=== PATIENT | female | born 2005 | race Caucasian/White ===

== ENCOUNTER 2024-11-20 12:20 | Emergency (ER) | payer SELFPAY ==
[2024-11-20] VITALS (7 sets, daily range): BP systolic 110–125; BP diastolic 61–76; PULSE 43–63; RESP 11–18; TEMP 36.4; O2SAT 100
--- OUTSIDE RECORDS SUMMARY | 2024-11-20 12:22 | XMS_ITS | Clinical Summary ---
Author Organization [facility] Address [address] [place] [id number] Care Team Providers Care Hemmer Lockstitch Name Role Phone Unavailable Primary Care Provider Unavailabl e Social History Tobacco Use Types Packs/Day Years Used Date Smoking Tobacco: Never Assessed Comments Unknown Sex and Gender Information Value Date Recorded Sex Assigned at Not on file Legal Sex Female 5:00 PM CDT Gender Identity Not on file Sexual Orientation Not on file Plan of Treatment Health Maintenance Due Date Last Done Comments Annual Physical 11/29/2006 HPV Vaccines (1 - 3-dose series) 11/29/2018 Meningococcal B Vaccine (1 o f 2 - Standard) 2019 Hepatitis C 11/29/2021 DTaP, Tdap and Td Vaccines ( 1 - Tdap) 11/29/2022 Hepatitis B Vaccines (1 of 3 - 19+ 3-dose series) 11/29/2022 COVID-19 Vaccine (1 - 2023-2 5 season) 2024 Meningococcal Vaccine Aged Out No bhupendra mirna eligible based on patient's age to complete this topic Pneumococcal Vaccine: Pediat rics (0 to 5 Years) and At-Risk Patients (6 to 49 Years) Aged Out No longer eligible b ased on patient's age to complete this topic RSV Immunizations Under 20 Months Aged Out No longer eligible based on patient's age to complete this topic
--- OUTSIDE RECORDS SUMMARY | 2024-11-20 12:22 | XMS_ITS | Clinical Summary ---
Author Organization [facility] Address [address] [place] [address] Care Team Providers Care Cotton Tier Name Role Phone Ammon Britton MD Primary Care Provider [phone] Source Comments [facility],non-owned Affiliates and Associated Physician Practices is amultiple site organization consisting of ambulatory clinics and hospital sitesin [place], [place], [place] and [place]. This disclosure is being madepursuant to the Care Everywhere program and may not contain all information available regarding this patient. Last updated 18.[facility] Allergies Active Allergy Reactions Criticality Noted Date Comments Insect Extract Anaphylaxis High 08/26/2018 Beestings, lips blue, trouble breathing, facial swelling Medications * Be aware that medications may not be up to date on this document. Alwaysverify current medications with the patient. ibuprofen (MOTRIN) 800 MG tablet Take 1 tablet by mouth every 6 hours as needed for Pain 60 tablet 8 Active Additional Information Patient not taking.Reported on 09/04/2021 sertraline (ZOLOFT) 100 MG tablet Take 150 mg by mouth once daily Active tamsulosin (FLOMAX) 0.4 MG capsuleIndicatio ns:Bladder dysfunction Take 1 capsule by mouth once daily Take 30 minutes after a meal at the same time each day. 30 capsule 2 9 Active Additional Information Patient not taking.Reported on 09/04/2021 norgestimate-eth inyl estradiol (ORTHO-CYCLEN; MONONESSA; PREVIFEM; SPRINTEC) 0.25-35 MG-MCG tablet Take 1 tablet by mouth once daily Active prazosin (MINIPRESS) 1 MG capsule Take 1 mg by mouth Active bacitracin ointment Apply to affected area 3 times daily 14 g 2 Active Active Problems Problem Noted Date Diagnosed Date Hand injury, right, initial encounter 06/06/2017 Right wrist injury, initial encounter 06/06/2017 Pes planus of both feet 09/19/2016 Complex regional pain syndro me type 1 of right lower extremity 08/08/2016 Right foot injury 07/18/2016 Family History Medical History Relation Name Comments Anesthesia Reaction Neg Hx Other - Hematologic Neg Hx Social History Tobacco Use Types Packs/Day Years Used Date Smoking Tobacco: Never Smokeless Tobacco: Never Alcohol Use Standard Drinks/Week Comments No 0 (1 standard drink = 0.6 oz pur e alcohol) Comments No Sex and Gender Information Value Date Recorded Sex Assigned at Not on file 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 Gender Identity Not on file Sexual Orientation Not on file Last Filed Vital Signs Vital Sign Reading Time Taken Comments Blood Pressure 125/78 09/05/2021 12:50 AM CDT Pulse 64 09/05/2021 4:02 AM CDT Temperature 36.7 C (98.1 F) 09/05/2021 2:10 AM CDT Respiratory Rate 20 09/05/2021 4:02 AM CDT Oxygen Saturation 100% 09/05/2021 4:02 AM CDT Inhaled Oxygen Concentration - - Weight 96.5 kg (212 lb 11.9 oz) 022 10:37 PM CDT Height 165.1 cm (5' 5) 09/04/2021 10:3 7 PM CDT Body Mass Index 35.4 09/04/2021 10:37 PM CDT Plan of Treatment Health Maintenance Due Date Last Done Comments HIV SCREENING 11/29/2018 HPV VACCINE (1 - 3-dose series) 11/29/2018 CHLAMYDIA/GONORRHEA SCREENING 2019 MENINGOCOCCAL (Group B) VACCINE SHARED DECISION-MAKING (1 of 2 - Standard) 2019 HEPATITIS C SCREENING 11/25/2021 DTAP/TDAP/TD VACCINES (1 - Tdap) 11/29/2022 HEPATITIS B VACCINE (1 of 3 - 19+ 3-dose series) 11/29/2022 COVID-19 VACCINE (1 - season) 2024 DEPRESSION SCREENING 05/05/2024 INFLUENZA VACCINE (#1) 2025 9, 02/16/2018, 02/20/2017, Additional history exists ZOSTER VACCINE (1 of 2) 11/29/2053 HIB VACCINE Aged Out No longer eligi ble based on patient's age to complete this topic MENINGOCOCCAL GROUPS A/C/Y/W VACCINE Aged Out No longer eligible based on patient's age to complete this topic PNEUMOCOCCAL VACCINE Aged Out No long er eligible based on patient's age to complete this topic Insurance [facility] Care Teams Cotton Tier Relationship Specialty Start Date End Date Ammon Britton MD [address] [place] [address] PCP - General 03/23/10
[2024-11-20 12:43] LABS: BEDSIDEPREGUCG Negative (Negative)
[2024-11-20 13:01] LABS: Add Urine Microscopic? YES; Appearance Urine Clear (Clear); Glucose Urine UA Negative (Negative); Leukocyte Esterase Ur Negative LEU/UL (Negative); Nitrate Urine Negative (Negative); Non Pathogenic Casts 0-2; Specific Grav Ur 1.029 (1.001-1.035)
--- NOTE | 2024-11-20 13:34 | ECG_ITS ---
Test Date: 2024-11-20 13:52:37 Measurements Intervals [place] Rate: 46 P: 5 MN: 164 QRS: 40 QRSD: 91 T: 28 QT: 432 QTc: 378 Interpretive Statements SINUS BRADYCARDIA WITH MARKED SINUS ARRHYTHMIA OTHERWISE NORMAL ECG No previous ECG available for comparison Electronically Signed On 11-21-2024 08:05:32 CDT by Fredi Llamas M.D.
[2024-11-20] MEDS: LACTATED RINGERS 1,000 ML 999 ML IV CONT (13:47)
[2024-11-20 13:52] LABS: Hematocrit 40.4 % (37.0-47.0); Hemoglobin 13.8 g/dL (12.0-15.0); Immature Granulocyte Percent A 0.3 % (0-0.5); Lymphocytes Absolute Auto 1.85 K/mm3 (0.9-3.2); Mean Corpuscular HGB Conc 34.2 g/dl (32-36); Mean Corpuscular Hemoglobin 30.9 pg (26-34); Mean Corpuscular Volume 90.4 fl (80-100); Nucleated Red Blood Cells Absolute Auto 0.000 K/mm3 (0.0-0.012); Nucleated Red Blood Cells Perc 0.0 % (0.0-0.2); Platelet Count Result 247 k/mm3 (150-375); Red Blood Count 4.47 M/mm3 (4.2-5.4); White Blood Count 8.0 K/mm3 (4.5-10.0)
--- OUTSIDE RECORDS SUMMARY | 2024-11-20 14:09 | XMS_ITS | Clinical Summary ---
Author Organization [facility] Address [address] [place] [id number] Care Team Providers Care Nurse Intern Name Role Phone Unavailable Primary Care Provider [...]
--- OUTSIDE RECORDS SUMMARY | 2024-11-20 14:09 | XMS_ITS | Clinical Summary ---
Author Organization [facility] Address [address] [facility] [place] [address] Care Team Providers Care Supervisor Composing Room Name Role Phone Ammon Britton MD Primary Care Provider [phone] Source Comments [facility],non-owned Affiliates and Associated Physician Practices is amultiple site organization consisting of ambulatory clinics and hospital sitesin [place], [place], [place] and [place]. This disclosure is being madepursuant to the Care Everywhere program and may not contain all information available regarding this patient. 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
[2024-11-20 14:12] LABS: Alanine Aminotransferase 20 U/L (6-35); Albumin Level 4.4 g/dL (3.5-5.1); Alkaline Phosphatase 63 U/L (38-126); Anion Gap 8 mmol/L (4-12); Aspartate Amino Transferase 24 U/L (14-36); Bilirubin,Total 0.4 mg/dL (0.2-1.3); Blood Urea Nitrogen 10 mg/dL (7-17); Calcium 9.5 mg/dL (8.4-10.2); Carbon Dioxide 24 mmol/L (22-30); Chloride 108 mmol/L (98-107); Estimated CRCL calculation 129 ml/min; Estimated Glomerular Filt Rate > 60; Glucose 91 mg/dL (65-110); Potassium 4.1 mmol/L (3.4-5.0); Sodium 140 mmol/L (137-145); Total Protein 7.5 g/dL (6.3-8.2)
--- NOTE | 2024-11-20 15:47 | ED_ITS ---
HPI - General Adult General Chief complaint: Dizziness Stated complaint: lightheaded, nausea Time Seen by Provider: 11/20/24 13:33 History of Present Illness HPI narrative: 18-year-old female presented to the emergency department for evaluation for suspected dehydration. Patient reports that she was in excessive heat yesterday and became fatigued. Patient states that she did drink fluids yesterday felt improved when she was at work today she began to feel poorly again. Patient states she did not have anything to eat this morning other than a chicken strips. Did not does not report having anything to drink today. Patient denies any significant past medical history. Related Data Home Medications ?Medication ?Instructions ?Recorded ?Confirmed ?Last Taken ?Type aripiprazole 2 mg tablet 2 mg PO DAILY 05/02/22 05/02/22 Unknown History prazosin 2 mg capsule 2 mg PO QHS 05/02/22 05/02/22 Unknown History sertraline 200 mg capsule 200 mg PO DAILY 05/02/22 05/02/22 Unknown History Allergies Allergy/AdvReac Type Severity Reaction Status Date / Time BEE STINGS Allergy Severe Difficulty Uncoded 11/20/24 12:28 Breathing Review of Systems 2 Review of Systems: All systems reviewed & are unremarkable except as noted in HPI and below PMFSH Past Medical History Medical History (Updated 11/20/24 @ 16:28 by Brown Marks MD) Obesity PCOS (polycystic ovarian syndrome) Anxiety Depression Family History Family History (Updated 05/02/22 @ 14:13 by Lida Ochoa MA) Other Breast cancer Cerebrovascular accident Depression Diabetes mellitus Heart disease Hypertension Ovarian cancer Ovarian cyst Parkinsons Social History Social History (Updated 05/02/22 @ 14:15 by Lida Ochoa MA) Smoking status: Never smoker Alcohol intake: never Substance use: never Living arrangements: with family Occupation/Education: occupation Additional occupation/education comments: 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 HEAD: normocephalic, atraumatic. EYES: PERRLA/EOMI, conjunctivae clear. NOSE: Normal no drainage EARS:TMS clear with good light reflex. THROAT: Pharynx clear, no exudate. NECK: Supple. No adenopathy, no masses. RESPIRATORY: Airway patent, respirations nonlabored. Clear to auscultation bilaterally, no rales, rhonchi, wheezing. CARDIOVASCULAR: Regular rate and rhythm without murmurs rubs or gallops. ABDOMINAL: Soft, nontender, nondistended, normal bowel sounds MUSCULOSKELETAL: Moves all extremities. Strength/ROM intact, No edema, No calf tenderness. NEURO: Alert. Cranial nerves II through XII intact. Grossly intact SKIN: Warm, dry. Normal Color Course Vital Signs Vital signs: Vital Signs Temperature 97.6 F 11/20/24 12:23 Pulse Rate 62 11/20/24 12:23 Respiratory Rate 16 11/20/24 12:23 Blood Pressure 121/67 11/20/24 12:23 Pulse Oximetry 100 11/20/24 12:23 Oxygen Delivery Room Air 11/20/24 12:23 Temperature 97.6 F 11/20/24 12:23 Pulse Rate 55 L 11/20/24 16:45 Respiratory Rate 11 L 11/20/24 16:45 Blood Pressure 125/65 11/20/24 16:45 Pulse Oximetry 100 11/20/24 16:45 Oxygen Delivery Room Air 11/20/24 12:23 Medical Decision Making MDM Narrative Medical decision making narrative: 18-year-old female presents emergency department for evaluation for suspect heat exhaustion. Patient reports that she does feel improved after rehydration. Patient's orthostatic vital signs were negative. EKG showed sinus [place]. Patient was afebrile with no leukocytosis hemoglobin of 13.8. No acute abnormalities on the CMP was normal kidney function UA was negative for infection and patient has produced test was negative. After rehydration patient was able to ambulate with no acute issues. Patient was advised to avoid excessive heat and to have close follow-up with her primary care physician. Differential Diagnosis Differential Diagnosis: Dehydration, heat exhaustion, UTI, COVID, RSV influenza Vital Signs Vital Signs: Vital Signs Temperature 97.6 F 11/20/24 12:23 Pulse Rate 62 11/20/24 12:23 Respiratory Rate 16 11/20/24 12:23 Blood Pressure 121/67 11/20/24 12:23 Pulse Oximetry 100 11/20/24 12:23 Oxygen Delivery Room Air 11/20/24 12:23 Temperature 97.6 F 11/20/24 12:23 Pulse Rate 55 L 11/20/24 16:45 Respiratory Rate 11 L 11/20/24 16:45 Blood Pressure 125/65 11/20/24 16:45 Pulse Oximetry 100 11/20/24 16:45 Oxygen Delivery Room Air 11/20/24 12:23 Lab Data Lab results reviewed: Yes I reviewed the patient's lab results. 11/20/24 13:46 11/20/24 13:46 Labs: Lab Results 11/20/24 11/20/24 11/20/24 Range/Units 12:38 12:40 13:46 WBC 8.0 (4.5-10.0) K/mm3 RBC 4.47 (4.2-5.4) M/mm3 Hgb 13.8 (12.0-15.0) g/dL Hct 40.4 (37.0-47.0) % MCV 90.4 (80-100) fl MCH 30.9 (26-34) pg MCHC 34.2 (32-36) g/dl RDW 12.5 (11.5-14.5) % Plt Count 247 (150-375) k/mm3 MPV 10.3 (7.4-10.4) fl Immature Gran % (Auto) 0.3 (0-0.5) % Neut % (Auto) 68.7 (45.5-73.1) % Lymph % (Auto) 23.2 (18.3-44.2) % Phillips % (Auto) 6.9 (2.6-8.5) % Eos % (Auto) 0.5 (0-4.4) % Baso % (Auto) 0.4 (0.2-1.2) % Lymph # (Auto) 1.85 (0.9-3.2) K/mm3 Phillips # (Auto) 0.6 (0.1-0.6) K/mm3 Eos # (Auto) 0.0 (0-0.3) K/mm3 Baso # (Auto) 0.0 (0.0-0.1) K/mm3 Abs Immat Gran (auto) 0.02 (0.00-0.031) K/mm3 Absolute Neuts (auto) 5.5 (1.3-6.7) K/mm3 Absolute Nucleated RBC 0.000 (0.0-0.012) K/mm3 Nucleated RBC % 0.0 (0.0-0.2) % Sodium 140 (137-145) mmol/L Potassium 4.1 (3.4-5.0) mmol/L Chloride 108 H (98-107) mmol/L Carbon Dioxide 24 (22-30) mmol/L Anion Gap 8 (4-12) mmol/L BUN 10 (7-17) mg/dL Creatinine 0.68 L (0.7-1.0) mg/dL Estim Creat Clear Calc 129 ml/min Estimated GFR > 60 (59 - ) Glucose 91 (65-110) mg/dL Calcium 9.5 (8.4-10.2) mg/dL Total Bilirubin 0.4 (0.2-1.3) mg/dL AST 24 (14-36) U/L ALT 20 (6-35) U/L Alkaline Phosphatase 63 (38-126) U/L Total Protein 7.5 (6.3-8.2) g/dL Albumin 4.4 (3.5-5.1) g/dL Urine Color Yellow (Yellow) Urine Appearance Clear (Clear) Urine pH 5.5 (5.0-9.0) Ur Specific [place] 1.029 (1.001-1.035) Urine Protein Trace (Negative) mg/dL Urine Glucose (UA) Negative (Negative) mg/dL Urine Ketones Trace H (Negative) mg/dL Ur Blood (Man) Negative (Negative) Urine Nitrate Negative (Negative) Urine Bilirubin Negative (Negative) Urine Urobilinogen 1.0 (<2.0) mg/dL Leukocyte Esterase Rfl Negative (Negative) BAR/UL Urine RBC 0-2 (0-2) /hpf Urine WBC 0-5 (0-3) /hpf Ur Squamous Epith Cells Occasional (Few) /hpf Urine Bacteria None seen /hpf Urine Casts 0-2 POC Urine HCG, Qual Negative (Negative) Discharge Plan Discharge Clinical Impression: Lightheadedness, Near syncope Patient Disposition: Home Condition: Stable Instructions: Antibiotic Form, Lightheadedness (ED) Additional Instructions: Stay hydrated and avoid excessive heat. Have close follow-up with your primary care physician for additional outpatient cardiac testing. If you have any worsening symptoms and please call or return to the emergency department. Patient Language: Austrian Prescriptions: No Action aripiprazole 2 mg tablet 2 mg PO DAILY prazosin 2 mg capsule 2 mg PO QHS sertraline 200 mg capsule 200 mg PO DAILY medroxyprogesterone [Provera] 10 mg tablet 10 mg PO DAILY Qty: 10 0RF 1 mg-20 mcg (24)/75 mg (4) tablet 1 tablet PO DAILY Qty: 84 1RF Follow-up/Referrals: PHYSICIAN,HUNTER [Primary Care Provider] -
--- NOTE | 2024-11-20 15:59 | PC.NURSE ---
Patient ambulated appropriately, was able to walk around the Emergency Department with no issue or dizziness
== END 2024-11-20 16:47 | disposition home or self-care (01) ==
PROVIDERS: Emergency Provider Emergency Medicine
DX: R42 Dizziness and giddiness (principal); R55 Syncope and collapse; E28.2 Polycystic ovarian syndrome; E66.9 Obesity, unspecified; Z68.34 Body mass index [BMI] 34.0-34.9, adult; F41.9 Anxiety disorder, unspecified; F32.A Depression, unspecified; Z79.3 Long term (current) use of hormonal contraceptives; Z79.890 Hormone replacement therapy; Z79.899 Other long term (current) drug therapy; R00.1 Bradycardia, unspecified
CPT/HCPCS: 36415; 80053; 81001; 81025; 85025; 93005; 96360; 99284; J7120